=== PATIENT | female | born 1990 | race Two or more races ===

== ENCOUNTER 2020-05-11 01:57 | Inpatient (IN) | payer MEDICAID ==
[~2020-05-11] VITALS: Ht 160 cm; Wt 51.9 kg
[2020-05-11] MEDS ORDERED: ALPR2TAB97 PO (02:23)
[2020-05-11] MEDS ORDERED: CLON-595 PO (02:23)
[2020-05-11] MEDS ORDERED: TRAZ-252 PO (02:24)
[2020-05-11 02:57] LABS: BASOPHILS % (AUTO) 0.5 % (0.0-2.0); EOSINOPHILS % (AUTO) 2.8 % (1.0-6.0); HEMATOCRIT 39.8 % (36-46); HEMOGLOBIN 13.2 g/dL (12.0-16.0); LYMPHOCYTES # (AUTO) 2.4 K/uL (1.0-4.8); LYMPHOCYTES % (AUTO) 41.8 % (22.0-44.0); MEAN CORPUSCULAR HEMOGLOBIN 30.4 pg (26.0-34.0); MEAN CORPUSCULAR HGB CONC 33.1 G/dL (31.0-37.0); MEAN CORPUSCULAR VOLUME 92 fL (80-100); MONOCYTES # (AUTO) 0.4 K/uL (0.1-1.0); MONOCYTES % (AUTO) 7.1 % (2.0-9.0); NEUTROPHILS # (AUTO) 2.7 K/uL (1.8-7.7); NEUTROPHILS % (AUTO) 47.8 % (40.0-70.0); PLATELET COUNT (AUTO) 178 K/uL (150-450); RED BLOOD CELL COUNT(AUTO) 4.33 MIL/uL (4.00-5.20); RED CELL DISTRIBUTION WIDTH 13.3 % (11.5-14.5)
[2020-05-11 03:06] LABS: ANION GAP 11 mmol/L (8-16); CALCIUM, TOTAL 8.5 mg/dL (8.8-10.5); CARBON DIOXIDE 26 mmol/L (22-29); CHLORIDE 108 mmol/L (98-107); CREATININE 0.83 mg/dL (0.60-1.30); GLOMERULAR FILTR. RATE CALC > 60 mL/min (>60); GLUCOSE,RANDOM 134 mg/dL (70-110); POTASSIUM 3.9 mmol/L (3.5-5.1); SODIUM SERUM 145 mmol/L (136-145); UREA NITROGEN, BLOOD 11 mg/dL (7-18)
[2020-05-11 03:07] LABS: SALICYLATE 1.5 mg/dL (2.8-20.0)
[2020-05-11 03:13] LABS: ALANINE AMINOTRANSFERASE 41 U/L (12-78); ALBUMIN 3.7 g/dL (3.4-5.0); ALKALINE PHOSPHATASE 70 U/L (46-116); ASPARTATE AMINOTRANSFERASE 30 U/L (15-37); BILIRUBIN,TOTAL 0.3 mg/dL (0.1-1.0); TOTAL PROTEIN, SERUM 7.3 g/dL (6.4-8.2)
[2020-05-11 03:17] LABS: ACETAMINOPHEN < 2 mcg/mL (10-30)
[2020-05-11] MEDS ORDERED: ACETAMINOPHEN 325 MG TABLET PO PRN ×2 (04:00→12:00)
[2020-05-11] MEDS ORDERED: 0.9% SODIUM CHLORIDE 10 ML SYRINGE IVP PRN (04:00)
[2020-05-11] MEDS ORDERED: ONDANSETRON HCL 4 MG/2 ML VIAL IVP PRN ×2 (04:00→12:00)
[2020-05-11 04:52] LABS: COVID AG,FIA SOURCE NASOPHARYNGEAL
[2020-05-11 05:01] LABS: AMPHET/METH SCREEN,URINE NEGATIVE (NEGATIVE); BARBITURATE SCREEN, URINE NEGATIVE (NEGATIVE); BENZODIAZEPINES SCREEN,URINE POSITIVE (NEGATIVE); CANNABINOID SCREEN,URINE NEGATIVE (NEGATIVE); COCAINE SCREEN,URINE NEGATIVE (NEGATIVE); METHADONE SCREEN, URINE NEGATIVE (NEGATIVE); OPIATE SCREEN,URINE NEGATIVE (NEGATIVE); PHENCYCLIDINE SCREEN,URINE NEGATIVE (NEGATIVE)
[2020-05-11 06:22] VITALS: BP 120/62
[2020-05-11 08:23] VITALS: BP 111/69
[2020-05-11 11:39] VITALS: BP 104/64
[2020-05-11] MEDS ORDERED: MORPHINE SULFATE 2 MG/ML SYRINGE IVP PRN (12:00)
[2020-05-11] MEDS ORDERED: BISACODYL 10 MG RECTAL RECTAL SUPPOSITORY PR PRN (12:00)
[2020-05-11] MEDS ORDERED: ZOLPIDEM TARTRATE 5 MG TABLET PO PRN (12:00)
[2020-05-11] MEDS ORDERED: HYDROCODONE/ACETAMINOPHEN 5-325 MG TABLET PO PRN (12:00)
[2020-05-11] MEDS ORDERED: MAGNESIUM HYDROXIDE SUSPENSION 30 ML UDCUP PO PRN (12:00)
[2020-05-11] MEDS ORDERED: FLUMAZENIL 0.1 MG/ML 5 ML VIAL IVP ONE (12:00)
[2020-05-11 12:21] LABS: PHOSPHORUS 2.8 mg/dL (2.5-4.9)
[2020-05-11 15:17] VITALS: BP 124/66
[2020-05-11] MEDS: HEPARIN SODIUM,PORCINE 5,000 UNITS/ML VIAL SQ SCH (16:12)
[2020-05-11 20:00] VITALS: BP 102/66
[2020-05-11] MEDS: DOCUSATE SODIUM 100 MG CAPSULE PO SCH (20:30)
[2020-05-12 00:01] VITALS: BP 93/55
[2020-05-12 04:00] VITALS: BP 114/55
[2020-05-12 08:09] VITALS: BP 120/76
[2020-05-12] MEDS: DOCUSATE SODIUM 100 MG CAPSULE PO SCH ×2 (08:53→19:53)
[2020-05-12] MEDS: HEPARIN SODIUM,PORCINE 5,000 UNITS/ML VIAL SQ SCH ×3 (08:53→16:00)
[2020-05-12] MEDS ORDERED: PANTOPRAZOLE SODIUM 40 MG DR TABLET PO SCH (09:00)
[2020-05-12 12:02] VITALS: BP 106/65
[2020-05-12 16:07] VITALS: BP 105/59
[2020-05-12 19:57] VITALS: BP 112/62
== END 2020-05-12 22:25 | DRG 817 ==
LOC: EMS 02:00 → 5S 03:56
PROVIDERS: ADMIT Internal Medicine; ATTEND Internal Medicine
DX: T42.4X2A Poisoning by benzodiazepines, intentional self-harm, initial encounter (principal); G92 Toxic encephalopathy; E43 Unspecified severe protein-calorie malnutrition; F41.9 Anxiety disorder, unspecified; F43.10 Post-traumatic stress disorder, unspecified; F17.210 Nicotine dependence, cigarettes, uncomplicated; Z20.822 Contact with and (suspected) exposure to COVID-19; F33.2 Major depressive disorder, recurrent severe without psychotic features; R33.9 Retention of urine, unspecified; Y92.89 Other specified places as the place of occurrence of the external cause; Z79.899 Other long term (current) drug therapy; Z68.20 Body mass index [BMI] 20.0-20.9, adult
CPT/HCPCS: 83735; 84100; 87426; 93005; 99291; G0480; G0481; J1644; J3490

== ENCOUNTER 2020-05-12 18:32 | Inpatient (IN) | payer MEDICAID ==
[~2020-05-12] VITALS: Ht 160 cm; Wt 49.4 kg
[~2020-05-12 18:32] MED LIST: ALPR2TAB97 PO; CLON-595 PO; TRAZ-252 PO
[2020-05-12] MEDS ORDERED: ZOLPIDEM TARTRATE 10 MG TABLET PO PRN (19:30)
[2020-05-12] MEDS ORDERED: HALOPERIDOL 5 MG TABLET PO PRN (19:30)
[2020-05-13] MEDS: LORazepam 2 MG TABLET PO PRN ×3 (04:22→12:44)
[2020-05-13] MEDS ORDERED: SOD BORATE/BORIC AC/WATER/NACL 118 ML BOTTLE OU PRN (06:00)
[2020-05-13] MEDS ORDERED: MAG HYDROX/AL HYDROX/SIMETH ES 30 ML SUSPENSION UDCUP PO PRN (07:30)
[2020-05-13] MEDS ORDERED: LOPERAMIDE HCL 2 MG CAPSULE PO PRN (07:30)
[2020-05-13] MEDS ORDERED: CloNIDine HCL 0.1 MG TABLET PO PRN (07:30)
[2020-05-13] MEDS ORDERED: NICOTINE 14 MG/24 HOUR PATCH TD PRN (07:30)
[2020-05-13] MEDS ORDERED: DOCUSATE SODIUM 100 MG CAPSULE PO PRN (07:30)
[2020-05-13] MEDS ORDERED: ONDANSETRON HCL 4 MG TABLET PO PRN (07:30)
[2020-05-13] MEDS ORDERED: IBUPROFEN 400 MG TABLET PO PRN (07:30)
[2020-05-13] MEDS ORDERED: PETROLATUM,WHITE 28 GM JELLY TP PRN (07:30)
[2020-05-13] MEDS ORDERED: MAGNESIUM HYDROXIDE SUSPENSION 30 ML UDCUP PO PRN (07:30)
[2020-05-13] MEDS ORDERED: GuaiFENesin/D-METHORPHAN [SUGAR-FREE] 200-20MG/10 ML SYRUP UDCUP PO PRN (07:30)
[2020-05-13] MEDS ORDERED: ACETAMINOPHEN 325 MG TABLET PO PRN (07:30)
[2020-05-13] MEDS ORDERED: ALBUTEROL SULFATE HFA 90 MCG/PUFF 8 GM INHALER IH PRN (07:30)
[2020-05-13 08:18] VITALS: BP 110/79
[2020-05-13] MEDS: FLUoxetine HCL 20 MG CAPSULE PO SCH (10:31)
[2020-05-13 16:25] VITALS: BP 108/76
[2020-05-13] MEDS: HYPROMELLOSE 0.5% 15 ML OPHTHALMIC SOLUTION OU PRN (21:31)
[2020-05-14 01:31] VITALS: BP 114/85
[2020-05-14 08:11] VITALS: BP 120/66
[2020-05-14] MEDS: FLUoxetine HCL 20 MG CAPSULE PO SCH (08:26)
[2020-05-14] MEDS: LORazepam 2 MG TABLET PO PRN (12:10)
[2020-05-14] MEDS: HYPROMELLOSE 0.5% 15 ML OPHTHALMIC SOLUTION OU PRN (13:18)
[2020-05-14] MEDS ORDERED: FLUO-191 PO (14:28)
[2020-05-14 16:08] VITALS: BP 107/68
[2020-05-15] MEDS ORDERED: FLUoxetine HCL 20 MG CAPSULE PO SCH (09:00)
== END 2020-05-14 17:13 | disposition home or self-care (01) | DRG 751 ==
LOC: B3A 23:00
DX: F33.2 Major depressive disorder, recurrent severe without psychotic features (principal); E43 Unspecified severe protein-calorie malnutrition; G92 Toxic encephalopathy; F41.9 Anxiety disorder, unspecified; Z20.822 Contact with and (suspected) exposure to COVID-19; E83.51 Hypocalcemia; R73.9 Hyperglycemia, unspecified; Z68.1 Body mass index [BMI] 19.9 or less, adult
CPT/HCPCS: Z7610